=== PATIENT | male | born 1955 | race Caucasian/White ===

== ENCOUNTER 2016-09-29 13:29 | Emergency (ER) | payer OTHER ==
[~2016-09-29 13:29] MED LIST: ALBUTEROL HFA60 DOSE IN; ATROVENT HFA IN; LEVAQUIN500 MG PO; MAGNESIUM PO; METHADONE HCL10 MG PO; NYSTATIN100000 MG PO; PREDNISONE20 MG PO; QVAR IN; SPIRIVA HANDIHALER IN; SYNTHROID50 MCG PO; VITAMIN D PO; [UNRECOGNIZED DRUG - OTHER] PO
--- NOTE | 2016-09-29 14:44 | DIAGNOSTIC IMAGING REPORT ---
PROCEDURE: XR CHEST 2 VIEW INDICATION: CHEST PAIN, HX COPD TECHNIQUE: PA and lateral views. COMPARISON: Chest 02/09/2015 and 01/21/2015 and 07/30/2010 FINDINGS: Lungs are clear. COPD. Heart and mediastinum are normal. Thorax is normal. IMPRESSION: 1. COPD. No acute infiltrates.
--- NOTE | 2016-09-29 16:26 | ED ORDER SUMMARY ---
..... Patient: MARIA EUGENIA MILLER OrderSheet [facility] VisitID: [id number] [place] [address] 60y, M Registration Date/Time: 09/29/2016 ORDER SHEET Weight: 58.9 kg (stated) Allergies: Codeine, PCN GENERAL ORDERS: Chest 2V Urgent (14:03 09/29/2016 Kevin Cui) (Ack 14:06 LNations ER Tech1) (14:20 LNations ER Tech1) E Learning Specialist (Continuous) (CP) (14:03 09/29/2016 Kevin Cui) (Ack 14:05 LNations ER Tech1) (15:58 DDean R.N.) CBC w Diff Urgent (14:04 09/29/2016 Kevin Cui) (Ack 14:06 LNations ER Tech1) (15:58 DDean R.N.) CMP Urgent (14:04 09/29/2016 Kevin Cui) (Ack 14:06 LNations ER Tech1) (15:58 DDean R.N.) PT with INR Urgent (14:04 09/29/2016 Kevin Cui) (Ack 14:06 LNations ER Tech1) (15:58 DDean R.N.) Troponin-I Urgent (14:04 09/29/2016 Kevin Cui) (Ack 14:06 LNations ER Tech1) (15:58 DDean R.N.) D-Dimer Urgent (14:04 09/29/2016 Kevin Cui) (Ack 14:06 LNations ER Tech1) (15:58 DDean R.N.) Pulse oximeter (14:04 09/29/2016 Kevin Cui) (Ack 14:05 LNations ER Tech1) (15:58 DDean R.N.) MEDICATION ORDERS: Aspirin PO 325 mg (Do not crush or chew, NOW) (14:04 09/29/2016 Kevin Cui) (14:35 LWhalen R.N.) DuoNeb Neb Tx 1 unit dose (NOW) (14:13 09/29/2016 Kevin Cui) (14:35 LWkim R.N.) IV FLUIDS: IV Saline Lock (14:04 09/29/2016 Kevin Cui) (14:34 LWhalmayo R.N.) Solu-MEDROL IV 125 mg (NOW) (16:12 09/29/2016 Kevin Cui) (16:47 LWhalmayo R.N.) ORDER SHEET NOTES: [Electronically signed by Stew Boyle R.N. (19:12 10/03/2016)] [Electronically signed by Ger King Dr. (21:20 10/06/2016)] [Electronically locked/signed by Stew Boyle R.N. (19:12 10/03/2016)]
--- NOTE | 2016-09-29 16:26 | ED CLINICAL REPORT ---
Clinical Report - Physicians/Mid Levels [facility] [address] [place] [address] 09/29/2016 13:30 Patient: MARIA EUGENIA MILLER Arrived- By private vehicle. Historian- patient. HISTORY OF PRESENT ILLNESS Chief Complaint: CHEST PAIN. It is described as "feels like I got punched in the chest". No radiation. At its maximum, severity described as moderate. When seen in the E.D., severity described as moderate. Modifying factors- worsened by movement. Relieved by rest. This started 2 weeks ago and is still present (staying the same). It was abrupt in onset and has been constant but is not gone now. Onset during rest. No nausea, vomiting or diaphoresis. (hx of COPD). He has had difficulty breathing. No additional chest pain. Similar symptoms previously: None. Recent medical care: Not recently seen/assessed. REVIEW OF SYSTEMS No fever, chills or abdominal pain. All systems otherwise negative, except as recorded above. PAST HISTORY See nurses notes. Medications: Atrovent HFA Inhalation 2 puffs, 2x a day. Hydrocodone-Acetaminophen Oral, as needed. Magnesium Oral. Methadone HCl 10 mg, qid. Qvar Inhalation 2 puffs BID . Vitamin D Oral. Allergies: Codeine.(hives) PCN.(vomiting). SOCIAL HISTORY Smoker- current status unknown. History of drug use: marijuana. No alcohol use. No recent travel. Is a local resident. ADDITIONAL NOTES The nursing notes have been reviewed. PHYSICAL EXAM Vital Signs: 09/29/2016 13:33 BP: 132/105. HR: 95. RR: 16. O2 saturation: 97%. Temp: 98.2 F. Pain level now: 8/10. Hypertensive. Oxygen saturation normal. Appearance: Alert. Oriented X3. Patient in mild distress. Eyes: Pupils equal, round and reactive to light. Eyes normal inspection. ENT: Ears normal. Nose normal. Pharynx normal. Neck: Normal inspection. Neck supple. CVS: Normal heart rate and rhythm. Heart sounds normal. Pulses normal. Respiratory: Mild respiratory distress. Expiratory moderate bilateral wheezes diffusely. No rales or rhonchi. (reproducible left sided anterior chest pain. No crepitus. No overlying skin changes.). Abdomen: Soft and nontender. Bowel sounds normal. No mass. Back: Normal external inspection. Skin: Skin warm and dry. Normal skin color. No rash. Normal skin turgor. Extremities: Extremities exhibit normal ROM. No lower extremity edema. Neuro: Oriented X 3. No motor deficit. No sensory deficit. LABS, X-RAYS, AND EKG EKG: EKG time: (2464). No acute ischemia. Normal sinus rhythm. Rate: 86. Normal P waves. Normal LANDON. Normal QRS complex. Normal axis. Normal ST and T waves, QT and QTc. Left anterior fascicular block, incomplete RBBB, normal sinus. The study has been interpreted contemporaneously. The EKG appears to be a good tracing. Interpretation time: 0805. Chest X-ray: (PROCEDURE: XR CHEST 2 VIEW INDICATION: CHEST PAIN, HX COPD TECHNIQUE: PA and lateral views. COMPARISON: Chest 02/09/2015 and 01/21/2015 and 07/30/2010 FINDINGS: Lungs are clear. COPD. Heart and mediastinum are normal. Thorax is normal. IMPRESSION: 1. COPD. No acute infiltrates.). The X-rays were independently viewed by me and interpreted by the radiologist. The X-rays were discussed with the radiologist (via fax). Laboratory Tests: CBC w Diff: (ASAEL: 09/29/2016 13:45) ( MsgRcvd 09/29/2016 14:11) Final results Test Result Flag Units (Reference) WHITE BLOOD COUNT 8.3 K/uL (4.5-11.5) RED BLOOD COUNT 4.95 M/uL (4.50-5.90) HEMOGLOBIN 14.1 gm/dL (13.5-17.5) HEMATOCRIT 44.0 % (41.0-53.0) MEAN CELL VOLUME 89 fL (80-100) MEAN CORPUSCULAR HGB 29 pg (26-34) MEAN CORPUSCULAR HGB CONC 32 g/dL (31-37) RED CELL DISTRIBUTION WIDTH 15.5 H % (11.6-14.8) PLATELET COUNT 123 L K/uL (150-400) NEUTROPHIL % 58.8 % (50-75) LYMPH % 26.4 % (25-40) MONO % 10.5 % (3-14) EOSINOPHIL % 3.6 % (0-4) BASOPHIL % 0.7 % (0-2) PT with INR: (ASAEL: 09/29/2016 13:45) ( [place] [facility] [place] 14:16) Final results Test Result Flag Units (Reference) INR 1.0 (0.8-1.2) Low Intensity Therapy: INR 1.5-2.0 PT range 18.5-23.1Mod.Intensity Therapy: INR 2.0-3.0 PT range 23.1-31.5High Intensity Therapy: INR 2.5-3.5 PT range 27.4-35.5High Intensity Therapy 2: INR 3.0-4.0 PT range 31.5-39.3 D-DIMER QUANTITATIVE 0.35 ug/mLFEU (0.27-0.52) The primary value of this quantitative assay relates toits negative predictive value (i.e. exclusion) of pulmonaryembolism/deep vein thrombosis/DIC.Elevated levels of d-dimer may also occur with:, age, cancer, inflammation, liver disease,post-op, infection, hematoma, coronary disease, peripheralarteriopathy, bleeding disorders and thrombolytic treatment.Results should be correlated with other clinical andradiological data.Testing Methodology: Latex Immunoassay CMP: (ASAEL: 09/29/2016 13:45) ( [place] [facility] [place] 09/29/2016 14:45) Final results Test Result Flag Units (Reference) GLUCOSE 121 H mg/dL (70-110) BUN 21 H mg/dL (7-18) CREATININE 0.9 mg/dL (0.6-1.3) Estimated GFR >60 mL/min Estimated GFR- >60 mL/min Note: Persistent reduction over 3 months in eGFR<60 mL/min/1.73 m2 defines CKD. Patients with eGFR values>=60 mL/min/1.73 m2 may also have CKD if evidence ofpersistent proteinuria. Additional information may be foundat [email or web address].org. SODIUM 138 mmol/L (136-145) POTASSIUM 4.3 mmol/L (3.5-5.1) CHLORIDE 103 mmol/L (98-107) CARBON DIOXIDE 26 mmol/L (21-32) CALCIUM 8.8 mg/dL (8.5-10.1) TOTAL PROTEIN 7.7 g/dL (6.4-8.2) ALBUMIN 3.5 g/dL (3.3-5.0) BILIRUBIN, TOTAL 0.5 mg/dL (0.0-1.0) ALKALINE PHOSPHATASE 81 U/L (46-116) AST (SGOT) 118 H U/L (15-37) ALT (SGPT) 129 H U/L (12-78) TROPONIN I <0.05 ng/mL (0.00-1.5) TROPONIN REFERENCE RANGE:<0.1 NEGATIVE0.1-1.5 INDETERMINANT>1.5 POSITIVE . PROGRESS AND PROCEDURES Course of Care: the patient is a pleasant 60-year-old male with past medical history significant for COPD presenting for evaluation of left-sided chest pain. Patient describes the pain as being "punched in the chest. "patient is slightly anxious at this time because of a friend who had suddenly after visiting the hospital. The patient has a some what rhonchi on lung examination. The patient will be treated with breathing treatment as well as obtain x-rays of the chest and laboratory studies including troponin and d-dimer. At this time differential diagnosis includes pneumonia, pulmonary embolism, acute myocardial infarction, and thoracic aortic dissection. The patient is nontoxic and in no acute distress. Patient is agreeable to the treatment plan. Workup does not show any acute abnormalities. D-dimer and troponin are noted to be negative. Because the patient has been having these symptoms for the past 2 weeks and have been constant, do not feel patient requires a delta troponin at this time. Patient will be instructed to follow-up with a assurance specialist and his primary care Discussedwith patient work up, diagnosis, home care, follow up, and return precautions. All questions answered. Patient expressed understanding of these instructions and was agreeable to them. Do not feel patient needs to be admitted or require further emergency department workup/evaluation. Disposition: Discharged. Condition: good. CLINICAL IMPRESSION Chest pain characterized as "discomfort" .12 lead EKG performed. (acute left sided). 09/29/2016 13:33 BP: 132/105. HR: 95. RR: 16. O2 saturation: 97%. Temp: 98.2 F. Pain level now: 8. Hypertensive. Oxygen saturation normal. Acute exacerbation of COPD (emphysematous) Essential hypertension. INSTRUCTIONS Warnings: GENERAL WARNINGS: Return or contact your physician immediately if your condition worsens or changes unexpectedly, if not improving as expected, or if other problems arise. SPECIFICALLY, return if you develop chest, neck, jaw, shoulder, arm, or back pain, difficulty breathing, a fluttering sensation in your chest, lightheadedness, fainting, excessive fatigue, or sudden sweating. Your Current Medications: CONTINUE TAKING THE FOLLOWING MEDICATIONS: Atrovent HFA Inhalation : 2 puffs 2x a day. Hydrocodone-Acetaminophen Oral : prn. Magnesium Oral. Methadone HCl : 10 mg qid. Qvar Inhalation : 2 puffs BID. Vitamin D Oral. Prescription Medications: Zofran (orally disintegrating tablets) 4 mg: take 1 orally every 8 hours as needed for nausea and vomiting. Dispense ten (10). No refill. Substitution is permissible. Prednisone 50 mg: take 1 orally every day for 5 days. Dispense five (5). No refills. Azithromycin Z-Edgard: Take according to package instructions. No refills. Follow-up: Return to the emergency department as needed. Follow up with your doctor in three days. Reason for referral: recheck today's concerns. Summary of care provided to patient via paper. Screening today revealed the patient's blood pressure to be in the hypertensive range. Understanding of the discharge instructions verbalized by patient. Follow-up with: Follow up. Reason for referral: Cardiology in [facility]. Call [phone] for an appointment in 3 days. Summary of care provided to patient via paper. (Electronically signed by Ger King Dr. 10/06/2016 21:20)
--- NOTE | 2016-09-29 16:26 | ED NURSING NOTES ---
Clinical Report - Nurses [facility] [address] [place] [address] 09/29/2016 13:30 Patient: MARIA EUGENIA MILLER TRIAGE Triage time 13:33. Chief Complaint: CHEST PAIN. --13:40 Janice Amezquita R.N. 13:33 09/29/16. BP: 132/105. HR: 95. RR: 16. O2 saturation: 97% on room air. Temp: 98.2 F (oral). Pain level now: 8/10. --13:40 Janice Amezquita R.N. Acuity: LEVEL 3. Alert. No acute distress. JULIO CÉSAR COMA SCORE: Julio César Coma Scale: 15- eyes open spontaneously (4); best verbal response- oriented x 4 (5); best motor response- obeys commands (6). --13:41 Janice Amezquita R.N. Weight: 58.9 kg stated. Height/Length: 69 inches Per Patient. BMI: 19.2. --13:36 Janice Amezquita R.N. Medications Atrovent HFA Inhalation 2 puffs, 2x a day. Hydrocodone-Acetaminophen Oral, as needed. Magnesium Oral. Methadone HCl 10 mg, qid. Qvar Inhalation 2 puffs BID . Vitamin D Oral. --13:39 Janice Amezquita R.N. Medication/allergy information source: the patient and patient's significant other. --13:40 Janice Amezquita R.N. Allergies Codeine.(hives) PCN.(vomiting) --13:39 Janice Amezquita R.N. History Arrived by private vehicle. Historian: patient. Accompanied by friend. Primary physician (Stu). Onset. (about 2 weeks ago). Describes the quality as (constant). Relates location as in the left chest area. Notes pain level as 8/10 on arrival and 10/10 at maximum. Provoking / relieving factors: worsened by movement and walking; relieved by rest. ( recent pneumonia). The patient has had difficulty breathing. Reports experiencing sweating episodes (at night). SOCIAL HX: Smoker- current status unknown (no). History of drug use: marijuana. (edible). No alcohol use. FALL RISK ASSESSMENT: Fall risk assessment completed. No fall risk identified. FUNCTIONAL ASSESSMENT: Functional assessment: no impairments noted. LEARNING NEEDS ASSESSMENT: The learning needs assessment revealed no barriers. --13:40 Janice Amezquita R.N. ( pt masked in admitting). --13:42 Janice Amezquita R.N. PROBLEMS: Myocardial Infarction. Pneumonia. Coronary Artery Disease. RSD. Hep C. COPD - Chronic Obstructive Pulmonary Disease. Angiogram 12 years ago with "a clean out". --13:35 Janice Amezquita R.N. Bronchitis [RuleOut]. --13:35 Janice Amezquita R.N. Assessment GENERAL / NEURO / PSYCH: Alert. Oriented X 4. Appears in no acute distress. Patient appears calm and cooperative. RESPIRATORY: Respirations not labored. Cough. CVS: Normal sinus rhythm noted. SKIN: Skin is warm and dry. --13:41 Janice Amezquita R.N. Interventions ID and allergy band on patient. To treatment room. --13:41 Janice Amezquita R.N. PHYSICAL ASSESSMENT 13:41 09/29/16. Ambulatory to room. Patient gowned. GENERAL / NEURO / PSYCH: Alert. Oriented X 4. Appears in no acute distress. RESPIRATORY: Respirations not labored. CVS: Cardiac rhythm: sinus rhythm. SKIN: Skin is warm and dry. --13:41 Janice Amezquita R.N. NURSING PROGRESS NOTES 13:41 09/29/16. property assessment monitor, pulse oximeter and NIBP monitor placed on patient. Patient gowned. Head of bed elevated. Call light placed in reach. Side rails up x 1. Bed placed in lowest position. Brakes of bed on. --13:41 Janice Amezquita R.N. 13:42 09/29/2016 Site #1 started via IV in the left forearm with an 20g angiocath, with aseptic technique and good blood return; one attempt. Blood drawn: rainbow set. Labeled in the presence of the patient and sent to the lab. Saline lock flushed with 10 mL saline (by Stew MCKINNEY). --13:42 Janice Amezquita R.N. EKG time: (13:43 AM). EKG was performed by a tech and shown to the ED physician. --13:45 Santos Tucker 14:34 09/29/2016 Aspirin PO Tablets 325 mg given. Allergies verified and confirmed 5 rights. --14:35 Stew Boyle R.N. 14:35 09/29/2016 Duoneb (Ipratropium-Albuterol) Neb TX Nebulizer 1 unit dose given. Given by the respiratory therapist. Allergies verified and confirmed 5 rights. --14:35 Stew Boyle R.N. 16:36 09/29/2016 SOLU-MEDROL (MethylPREDNISolone Sodium Succ) IVP 125 mg given over 2 minute(s) via site #1. Allergies verified and confirmed 5 rights. IV patency established. IV site checked: no pain, redness, or swelling. IV flushed thoroughly pre- and post-medication administration. --16:47 Stew Boyle R.N. 16:51 09/29/16. BP: 94/68. HR: 65. RR: 18. O2 saturation: 95%. Temp: 98.2 F. Pain level now 4/10. 14:40 09/29/16. BP: 101/70. HR: 77. RR: 18. O2 saturation: 95%. 13:40 09/29/16. BP: 108/74. HR: 80. RR: 15. O2 saturation: 94%. 13:33 09/29/16. BP: 132/105. HR: 95. RR: 16. O2 saturation: 97% on room air. Temp: 98.2 F (oral). Pain level now: 810. --17:01 Stew Boyle R.N. 16:36 09/29/2016 Site #1 removed upon discharge. Catheter intact. Pressure dressing applied. --17:01 Stew Boyle R.N. DISPOSITION / DISCHARGE Departure time: 16:30 Sep 29 2016. Condition at departure: improved. No learning barriers present. Discharge instructions provided and reviewed with the patient. Reviewed warnings. Reviewed medication(s). Treatments reviewed. Reviewed referrals. Patient verbalized understanding. Written instructions provided in Armenian. The patient was discharged home and accompanied by spouse. He left the Emergency Department ambulatory and via private vehicle. Spouse driving. --16:56 Stew Boyle R.N. 16:51 09/29/16. BP: 94/68. HR: 65. RR: 18. O2 saturation: 95%. Temp: 98.2 F. Pain level now 4/10. --16:56 Stew Boyle R.N. Locked/Released at 10/03/2016 19:12 by Stew Boyle R.N.
--- NOTE | 2016-09-29 16:26 | ED ORDER SUMMARY ---
..... Patient: MARIA EUGENIA MILLER OrderSheet [facility] VisitID: [id number] [place] [address] 60y, M Registration Date/Time: 09/29/2016 ORDER SHEET Weight: 58.9 kg (stated) Allergies: Codeine, PCN GENERAL ORDERS: Chest 2V Urgent (14:03 09/29/2016 Kevin Cui) (Ack 14:06 LNations ER Tech1) (14:20 LNations ER Tech1) Pattern Lease Inspector (Continuous) (CP) (14:03 09/29/2016 Kevin Cui) (Ack 14:05 LNations ER Tech1) (15:58 DDean R.N.) CBC w Diff Urgent (14:04 09/29/2016 Kevin Cui) (Ack 14:06 LNations ER Tech1) (15:58 DDean R.N.) CMP Urgent (14:04 09/29/2016 Kevin Cui) (Ack 14:06 LNations ER Tech1) (15:58 DDean R.N.) PT with INR Urgent (14:04 09/29/2016 Kevin Cui) (Ack 14:06 LNations ER Tech1) (15:58 DDean R.N.) Troponin-I Urgent (14:04 09/29/2016 Kevin Cui) (Ack 14:06 LNations ER Tech1) (15:58 DDean R.N.) D-Dimer Urgent (14:04 09/29/2016 Kevin Cui) (Ack 14:06 LNations ER Tech1) (15:58 DDean R.N.) Pulse oximeter (14:04 09/29/2016 Kevin Cui) (Ack 14:05 LNations ER Tech1) (15:58 DDean R.N.) MEDICATION ORDERS: Aspirin PO 325 mg (Do not crush or chew, NOW) (14:04 09/29/2016 Kevin Cui) (14:35 LWhalen R.N.) DuoNeb Neb Tx 1 unit dose (NOW) (14:13 09/29/2016 Kevin Cui) (14:35 LWkim R.N.) IV FLUIDS: IV Saline Lock (14:04 09/29/2016 Kevin Cui) (14:34 LWhalmayo R.N.) Solu-MEDROL IV 125 mg (NOW) (16:12 09/29/2016 Kevin Cui) (16:47 LWhalmayo R.N.) ORDER SHEET NOTES: [Electronically signed by Stew Boyle R.N. (19:12 10/03/2016)] [Electronically signed by Ger King Dr. (21:20 10/06/2016)] [Electronically locked/signed by Stew Boyle R.N. (19:12 10/03/2016)]
--- NOTE | 2016-09-29 16:26 | ED CLINICAL REPORT ---
Clinical Report - Physicians/Mid Levels [facility] [address] [place] [address] 09/29/2016 13:30 Patient: MARIA EUGENIA MILLER Arrived- By private vehicle. Historian- patient. HISTORY OF PRESENT ILLNESS Chief Complaint: CHEST PAIN. It is described as "feels like I got punched in the chest". No radiation. At its maximum, severity described as moderate. When seen in the E.D., severity described as moderate. Modifying factors- worsened by movement. Relieved by rest. This started 2 weeks ago and is still present (staying the same). It was abrupt in onset and has been constant but is not gone now. Onset during rest. No nausea, vomiting or diaphoresis. (hx of COPD). He has had difficulty breathing. No additional chest pain. Similar symptoms previously: None. Recent medical care: Not recently seen/assessed. REVIEW OF SYSTEMS No fever, chills or abdominal pain. All systems otherwise negative, except as recorded above. PAST HISTORY See nurses notes. Medications: Atrovent HFA Inhalation 2 puffs, 2x a day. Hydrocodone-Acetaminophen Oral, as needed. Magnesium Oral. Methadone HCl 10 mg, qid. Qvar Inhalation 2 puffs BID . Vitamin D Oral. Allergies: Codeine.(hives) PCN.(vomiting). SOCIAL HISTORY Smoker- current status unknown. History of drug use: marijuana. No alcohol use. No recent travel. Is a local resident. ADDITIONAL NOTES The nursing notes have been reviewed. PHYSICAL EXAM Vital Signs: 09/29/2016 13:33 BP: 132/105. HR: 95. RR: 16. O2 saturation: 97%. Temp: 98.2 F. Pain level now: 8/10. Hypertensive. Oxygen saturation normal. Appearance: Alert. Oriented X3. Patient in mild distress. Eyes: Pupils equal, round and reactive to light. Eyes normal inspection. ENT: Ears normal. Nose normal. Pharynx normal. Neck: Normal inspection. Neck supple. CVS: Normal heart rate and rhythm. Heart sounds normal. Pulses normal. Respiratory: Mild respiratory distress. Expiratory moderate bilateral wheezes diffusely. No rales or rhonchi. (reproducible left sided anterior chest pain. No crepitus. No overlying skin changes.). Abdomen: Soft and nontender. Bowel sounds normal. No mass. Back: Normal external inspection. Skin: Skin warm and dry. Normal skin color. No rash. Normal skin turgor. Extremities: Extremities exhibit normal ROM. No lower extremity edema. Neuro: Oriented X 3. No motor deficit. No sensory deficit. LABS, X-RAYS, AND EKG EKG: EKG time: (4984). No acute ischemia. Normal sinus rhythm. Rate: 86. Normal P waves. Normal LANDON. Normal QRS complex. Normal axis. Normal ST and T waves, QT and QTc. Left anterior fascicular block, incomplete RBBB, normal sinus. The study has been interpreted contemporaneously. The EKG appears to be a good tracing. Interpretation time: 1575. Chest X-ray: (PROCEDURE: XR CHEST 2 VIEW INDICATION: CHEST PAIN, HX COPD TECHNIQUE: PA and lateral views. COMPARISON: Chest 02/09/2015 and 01/21/2015 and 07/30/2010 FINDINGS: Lungs are clear. COPD. Heart and mediastinum are normal. Thorax is normal. IMPRESSION: 1. COPD. No acute infiltrates.). The X-rays were independently viewed by me and interpreted by the radiologist. The X-rays were discussed with the radiologist (via fax). Laboratory Tests: CBC w Diff: (ASAEL: 09/29/2016 13:45) ( MsgRcvd 09/29/2016 14:11) Final results Test Result Flag Units (Reference) WHITE BLOOD COUNT 8.3 K/uL (4.5-11.5) RED BLOOD COUNT 4.95 M/uL (4.50-5.90) HEMOGLOBIN 14.1 gm/dL (13.5-17.5) HEMATOCRIT 44.0 % (41.0-53.0) MEAN CELL VOLUME 89 fL (80-100) MEAN CORPUSCULAR HGB 29 pg (26-34) MEAN CORPUSCULAR HGB CONC 32 g/dL (31-37) RED CELL DISTRIBUTION WIDTH 15.5 H % (11.6-14.8) PLATELET COUNT 123 L K/uL (150-400) NEUTROPHIL % 58.8 % (50-75) LYMPH % 26.4 % (25-40) MONO % 10.5 % (3-14) EOSINOPHIL % 3.6 % (0-4) BASOPHIL % 0.7 % (0-2) PT with INR: (ASAEL: 09/29/2016 13:45) ( [facility] 09/29/2016 14:16) Final results Test Result Flag Units (Reference) INR 1.0 (0.8-1.2) Low Intensity Therapy: INR 1.5-2.0 PT range 18.5-23.1Mod.Intensity Therapy: INR 2.0-3.0 PT range 23.1-31.5High Intensity Therapy: INR 2.5-3.5 PT range 27.4-35.5High Intensity Therapy 2: INR 3.0-4.0 PT range 31.5-39.3 D-DIMER QUANTITATIVE 0.35 ug/mLFEU (0.27-0.52) The primary value of this quantitative assay relates toits negative predictive value (i.e. exclusion) of pulmonaryembolism/deep vein thrombosis/DIC.Elevated levels of d-dimer may also occur with:, age, cancer, inflammation, liver disease,post-op, infection, hematoma, coronary disease, peripheralarteriopathy, bleeding disorders and thrombolytic treatment.Results should be correlated with other clinical andradiological data.Testing Methodology: Latex Immunoassay CMP: (ASAEL: 09/29/2016 13:45) ( [facility] [place] 09/29/2016 14:45) Final results Test Result Flag Units (Reference) GLUCOSE 121 H mg/dL (70-110) BUN 21 H mg/dL (7-18) CREATININE 0.9 mg/dL (0.6-1.3) Estimated GFR >60 mL/min Estimated GFR- >60 mL/min Note: Persistent reduction over 3 months in eGFR<60 mL/min/1.73 m2 defines CKD. Patients with eGFR values>=60 mL/min/1.73 m2 may also have CKD if evidence ofpersistent proteinuria. Additional information may be foundat [email or web address].org. SODIUM 138 mmol/L (136-145) POTASSIUM 4.3 mmol/L (3.5-5.1) CHLORIDE 103 mmol/L (98-107) CARBON DIOXIDE 26 mmol/L (21-32) CALCIUM 8.8 mg/dL (8.5-10.1) TOTAL PROTEIN 7.7 g/dL (6.4-8.2) ALBUMIN 3.5 g/dL (3.3-5.0) BILIRUBIN, TOTAL 0.5 mg/dL (0.0-1.0) ALKALINE PHOSPHATASE 81 U/L (46-116) AST (SGOT) 118 H U/L (15-37) ALT (SGPT) 129 H U/L (12-78) TROPONIN I <0.05 ng/mL (0.00-1.5) TROPONIN REFERENCE RANGE:<0.1 NEGATIVE0.1-1.5 INDETERMINANT>1.5 POSITIVE . PROGRESS AND PROCEDURES Course of Care: the patient is a pleasant 60-year-old male with past medical history significant for COPD presenting for evaluation of left-sided chest pain. Patient describes the pain as being "punched in the chest. "patient is slightly anxious at this time because of a friend who had suddenly after visiting the hospital. The patient has a some what rhonchi on lung examination. The patient will be treated with breathing treatment as well as obtain x-rays of the chest and laboratory studies including troponin and d-dimer. At this time differential diagnosis includes pneumonia, pulmonary embolism, acute myocardial infarction, and thoracic aortic dissection. The patient is nontoxic and in no acute distress. Patient is agreeable to the treatment plan. Workup does not show any acute abnormalities. D-dimer and troponin are noted to be negative. Because the patient has been having these symptoms for the past 2 weeks and have been constant, do not feel patient requires a delta troponin at this time. 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 All questions answered. Patient expressed understanding of these instructions and was agreeable to them. Do not feel patient needs to be admitted or require further emergency department workup/evaluation. Disposition: Discharged. Condition: good. CLINICAL IMPRESSION Chest pain characterized as "discomfort" .12 lead EKG performed. (acute left sided). 09/29/2016 13:33 BP: 132/105. HR: 95. RR: 16. O2 saturation: 97%. Temp: 98.2 F. Pain level now: 8. Hypertensive. Oxygen saturation normal. Acute exacerbation of COPD (emphysematous) Essential hypertension. INSTRUCTIONS Warnings: GENERAL WARNINGS: Return or contact your physician immediately if your condition worsens or changes unexpectedly, if not improving as expected, or if other problems arise. SPECIFICALLY, return if you develop chest, neck, jaw, shoulder, arm, or back pain, difficulty breathing, a fluttering sensation in your chest, lightheadedness, fainting, excessive fatigue, or sudden sweating. Your Current Medications: CONTINUE TAKING THE FOLLOWING MEDICATIONS: Atrovent HFA Inhalation : 2 puffs 2x a day. Hydrocodone-Acetaminophen Oral : prn. Magnesium Oral. Methadone HCl : 10 mg qid. Qvar Inhalation : 2 puffs BID. Vitamin D Oral. Prescription Medications: Zofran (orally disintegrating tablets) 4 mg: take 1 orally every 8 hours as needed for nausea and vomiting. Dispense ten (10). No refill. Substitution is permissible. Prednisone 50 mg: take 1 orally every day for 5 days. Dispense five (5). No refills. Azithromycin Z-Edgard: Take according to package instructions. No refills. Follow-up: Return to the emergency department as needed. Follow up with your doctor in three days. Reason for referral: recheck today's concerns. Summary of care provided to patient via paper. Screening today revealed the patient's blood pressure to be in the hypertensive range. Understanding of the discharge instructions verbalized by patient. Follow-up with: Follow up. Reason for referral: Cardiology in [facility]. Call [phone] for an appointment in 3 days. Summary of care provided to patient via paper. (Electronically signed by Ger King Dr. 10/06/2016 21:20)
--- NOTE | 2016-10-06 21:21 | ED MAR SUMMARY ---
..... Medication Administration Record [facility] [address] [place] [address] Patient: MARIA EUGENIA MILLER Visit ID: [id number] 60y, M Weight: 58.9 kg Height/Length: 69 in BMI: 19.2 ALLERGIES: Codeine, PCN Given 14:34 09/29/2016 Stew Boyle RCatia Medication Administered: ASPIRIN [PO], Dose: 325 mg Tablets PO. Medication Ordered: Aspirin PO 325 mg (Do not crush or chew, NOW). Given 14:35 09/29/2016 Stew Boyle R.N. Medication Administered: DUONEB [NEB TX] (IPRATROPIUM-ALBUTEROL), Dose: 1 unit dose Nebulizer Neb TX. Medication Ordered: DuoNeb Neb Tx 1 unit dose (NOW). Given 16:36 09/29/2016 Stew Boyle RSimeonNSimeon Medication Administered: SOLU-MEDROL [IVP] (METHYLPREDNISOLONE SODIUM SUCC), Dose: 125 mg IVP over 2 minute(s), Site: #1. Medication Ordered: Solu-MEDROL IV 125 mg (NOW).
--- NOTE | 2016-10-06 21:21 | ED DISCHARGE INSTRUCTIONS ---
Patient: MARIA EUGENIA MILLER General Instructions [facility] VisitID: [id number] [place] [address] 60y, M Registration Date/Time: 09/29/2016 Chest pain characterized as "discomfort" .12 lead EKG performed. (acute left sided). 09/29/2016 13:33 BP: 132/105. HR: 95. RR: 16. O2 saturation: 97%. Temp: 98.2 F. Pain level now: 810. Hypertensive. Oxygen saturation normal. Acute exacerbation of COPD (emphysematous) Essential hypertension. INSTRUCTIONS Warnings: GENERAL WARNINGS: Return or contact your physician immediately if your condition worsens or changes unexpectedly, if not improving as expected, or if other problems arise. SPECIFICALLY, return if you develop chest, neck, jaw, shoulder, arm, or back pain, difficulty breathing, a fluttering sensation in your chest, lightheadedness, fainting, excessive fatigue, or sudden sweating. Your Current Medications: CONTINUE TAKING THE FOLLOWING MEDICATIONS: Atrovent HFA Inhalation : 2 puffs 2x a day. Hydrocodone-Acetaminophen Oral : prn. Magnesium Oral. Methadone HCl : 10 mg qid. Qvar Inhalation : 2 puffs BID. Vitamin D Oral. Prescription Medications: Zofran (orally disintegrating tablets) 4 mg: take 1 orally every 8 hours as needed for nausea and vomiting. Dispense ten (10). No refill. Substitution is permissible. Prednisone 50 mg: take 1 orally every day for 5 days. Dispense five (5). No refills. Azithromycin Z-Edgard: Take according to package instructions. No refills. Follow-up: Return to the emergency department as needed. Follow up with your doctor in three days. Reason for referral: recheck today's concerns. Summary of care provided to patient via paper. Screening today revealed the patient's blood pressure to be in the hypertensive range. Understanding of the discharge instructions verbalized by patient. Follow-up with: Follow up. Reason for referral: Cardiology in [facility]. Call [phone] for an appointment in 3 days. Summary of care provided to patient via paper. ADDITIONAL INFORMATION Chest Pain, Uncertain Cause Chest pain can happen for a number of reasons. Sometimes the cause can not be determined. If yourcondition does not seem serious, and your pain does not appear to be coming from your heart, your doctor may recommend watching it closely. Sometimes the signs of a serious problem take more time to appear. Therefore, watch for the warning signs listed below. Home care After your visit, follow these recommendations: Rest today and avoid strenuous activity. Take any prescribed medicine as directed. Follow-up care Follow up with your doctor or this facility as instructed or if you do not start to feel better within 24 hours. Call 911 Get immediate medical attention if any of the following occur: A change in the type of pain: if it feels different, becomes more severe, lasts longer, or begins to spread into your shoulder, arm, neck, jaw or back Shortness of breath or increased pain with breathing Weakness, dizziness, or fainting Rapid heart beat Get prompt medical attention Call your doctor right away if any of the following occur: Cough with dark colored sputum (phlegm) or blood Fever of 100.4F(38C) or higher, or as directed by your health care provider Swelling, pain or redness in one leg COPD Flare Both emphysema and chronic bronchitis are forms of chronic obstructive pulmonary disease (COPD). It is most often caused by many years of smoking tobacco. Many things can make your lung disease suddenly get worse. These causes include the common cold, pneumonia, acute bronchitis, missing doses of your regular breathing medicines, or being around smoke, dust, or other air pollutants. A COPD flare may last 7 to 14 days. Your doctor may prescribe medicineto relax your airways and prevent wheezing. Your doctor may also prescribe antibiotics if he or she thinks you havea bacterial infection. Prednisone can helpease inflammation in a severe attack. Home care Here are things you can do at home: Drink lots of water or other fluids (at least 10 glasses a day) during an attack. This will loosen lung secretions and make it easier to breathe. If you have heart or kidney disease, check with your doctor before you drink extra amounts of fluids. Take prescribed medicine exactly at the times advised. If you have a hand-held inhaler or aerosol breathing medicine, don't use it more than once every 4 hours, unless your doctor tells you to. If you were givenan antibiotic or prednisone, take all of the medicine even if you are feeling better after a few days. Don't smoke. Avoid being aroundthe smoke of others. If you were given an inhaler, use it exactly as directed. If you need to use it more often than prescribed, your condition may be getting worse. Call your doctor. Follow-up care Follow up with your health care provider.If you are 65 or older or have chronic asthma or COPD, you should get a single dose of the pneumococcal vaccine and aflu shot each year. You may need a second dose of the pneumococcal vaccine if you had the first dose at a younger age. Your health care provider will let you know if you need a second dose. For all other people, the usual dose for the pneumococcal vaccine is 1 or 2 shots. Yourprovider can discuss this with you. When to seek medical care Get prompt medical attention ifany of these occur: Increased wheezing or shortness of breath Need to use your inhalers more often than usual without relief Fever of 100.4F(38C) or higher, or as directed by your health care provider Coughing up lots of dark-colored or bloody sputum (mucus) Chest pain with each breath You do not start to improve within 24 hours High Blood Pressure --Established High Blood Pressure (Hypertension) is a chronic disease. The cause is unknown in most cases. It can usually be controlled with lifestyle changes and/or medicines. Symptoms of high blood pressure may include headache, dizziness, visual changes, chest pain and shortness of breath. Sometimes it causes no symptoms at all. However, even if there are no symptoms, untreated high blood pressure increases the risk of heart attack, also known as acute myocardial infarction, or AMI, and stroke. It is a serious health risk and should not be ignored. A normal blood pressure is 120/80 or less. The first (top) number is the "systolic" pressure. The second (bottom) number is the "diastolic" pressure. Hypertension exists when either the top number is 140 or higher, OR the bottom number is 90 or higher on repeated measurements. Home Care: All patients with high blood pressure should do the following to lower their pressure. If you are on medicines, then these methods may reduce or eliminate your need for medicines in the future. Begin a weight loss program if you are overweight. Reduce your salt intake. Avoid high salt foods (olives, pickles, smoked meats, salted potato chips, etc.). Do not add salt to your food at the table. Use only small amounts of salt when cooking. Begin an exercise program. Discuss with your doctor what type of exercise program would be best for you. It doesn't have to be difficult. Even brisk walking for 20 minutes three times a week is a good form of exercise. Avoid medicines which contain heart stimulants. This includes many cold and sinus decongestant pills and sprays as well as diet pills. Check the warnings about hypertension on the label. Stimulants such as amphetamine or cocaine could be lethal for someone with hypertension. Never take these. Limit your caffeine intake or switch to caffeine-free products. Stop smoking. If you are a long-time smoker, this can be hard. Enroll in a stop-smoking program to improve your chance of success. Learning how to handle stress better is an important part of any program to lower blood pressure. Learn about relaxation methods such as meditation, yoga or biofeedback. If medicines were prescribed, take them exactly as directed. Missing doses may cause your blood pressure get out of control. Consider buying an automatic blood pressure machine (available at most pharmacies). Use this to monitor your blood pressure at home and report the results to your doctor. Follow Up: Regular visits to your own physician for blood pressure checks and medicine adjustment is an important part of your care. Make a follow-up appointment as directed by our staff. Get Prompt Medical Attention if any of the following occur: Chest pain or shortness of breath Severe headache Throbbing or rushing sound in the ears Nosebleed Sudden severe abdominal pain Extreme drowsiness, confusion or fainting Dizziness or vertigo (dizziness with spinning sensation) Weakness of an arm or leg or one side of the face Difficulty with speech or vision Ondansetron Oral disintegrating tablet What is this medicine? ONDANSETRON (on DAVID se brando) is used to treat nausea and vomiting caused by chemotherapy. It is also used to prevent or treat nausea and vomiting after surgery. How should I use this medicine? These tablets are made to dissolve in the mouth. Do not try to push the tablet through the foil backing. With dry hands, peel away the foil backing and gently remove the tablet. Place the tablet in the mouth and allow it to dissolve, then swallow. While you may take these tablets with water, it is not necessary to do so. Talk to your file machine operator regarding the use of this medicine in children. Special care may be needed. What side effects may I notice from receiving this medicine? Side effects that you should report to your doctor or health healthcare market consultant as soon as possible: allergic reactions like skin rash, itching or hives, swelling of the face, lips, or tongue breathing problems dizziness fast or irregular heartbeat feeling faint or lightheaded, falls fever and chills swelling of the hands and feet tightness in the chest Side effects that usually do not require medical attention (report to your doctor or health healthcare market consultant if they continue or are bothersome): constipation or diarrhea headache What may interact with this medicine? Do not take this medicine with any of the following medications: -apomorphine -cisapride -dofetilide -dronedarone -pimozide -thioridazine -ziprasidone This medicine may also interact with the following medications: -carbamazepine -phenytoin -rifampicin -tramadol -other medicines that prolong the QT interval (cause an abnormal heart rhythm) What if I miss a dose? If you miss a dose, take it as soon as you can. If it is almost time for your next dose, take only that dose. Do not take double or extra doses. Where should I keep my medicine? Keep out of the reach of children. Store between 2 and 30 degrees C (36 and 86 degrees F). Throw away any unused medicine after the expiration date. What should I tell my health care provider before I take this medicine? They need to know if you have any of these conditions: heart disease history of irregular heartbeat liver disease low levels of magnesium or potassium in the blood an unusual or allergic reaction to ondansetron, granisetron, other medicines, foods, dyes, or preservatives or trying to get breast-feeding What should I watch for while using this medicine? Check with your doctor or health healthcare market consultant as soon as you can if you have any sign of an allergic reaction. Prednisone Oral tablet What is this medicine? PREDNISONE (PRED ni sone) is a corticosteroid. It is commonly used to treat inflammation of the skin, joints, lungs, and other organs. Common conditions treated include asthma, allergies, and arthritis. It is also used for other conditions, such as blood disorders and diseases of the adrenal glands. How should I use this medicine? Take this medicine by mouth with a glass of water. Follow the directions on the prescription label. Take this medicine with food. If you are taking this medicine once a day, take it in the morning. Do not take more medicine than you are told to take. Do not suddenly stop taking your medicine because you may develop a severe reaction. Your doctor will tell you how much medicine to take. If your doctor wants you to stop the medicine, the dose may be slowly lowered over time to avoid any side effects. Talk to your file machine operator regarding the use of this medicine in children. Special care may be needed. What side effects may I notice from receiving this medicine? Side effects that you should report to your doctor or health healthcare market consultant as soon as possible: allergic reactions like skin rash, itching or hives, swelling of the face, lips, or tongue changes in emotions or moods changes in vision depressed mood eye pain fever or chills, cough, sore throat, pain or difficulty passing urine increased thirst swelling of ankles, feet Side effects that usually do not require medical attention (report to your doctor or health healthcare market consultant if they continue or are bothersome): confusion, excitement, restlessness headache nausea, vomiting skin problems, acne, thin and shiny skin trouble sleeping weight gain What may interact with this medicine? Do not take this medicine with any of the following medications: metyrapone mifepristone This medicine may also interact with the following medications: aminoglutethimide amphotericin B aspirin and aspirin-like medicines barbiturates certain medicines for diabetes, like glipizide or glyburide cholestyramine cholinesterase inhibitors cyclosporine digoxin diuretics ephedrine female hormones, like estrogens and control pills isoniazid ketoconazole NSAIDS, medicines for pain and inflammation, like ibuprofen or naproxen phenytoin rifampin toxoids vaccines warfarin What if I miss a dose? If you miss a dose, take it as soon as you can. If it is almost time for your next dose, talk to your doctor or health healthcare market consultant. You may need to miss a dose or take an extra dose. Do not take double or extra doses without advice. Where should I keep my medicine? Keep out of the reach of children. Store at room temperature between 15 and 30 degrees C (59 and 86 degrees F). Protect from light. Keep container tightly closed. Throw away any unused medicine after the expiration date. What should I tell my health care provider before I take this medicine? They need to know if you have any of these conditions: Bharat's syndrome diabetes glaucoma heart disease high blood pressure infection (especially a virus infection such as chickenpox, cold sores, or herpes) kidney disease liver disease mental illness myasthenia gravis osteoporosis seizures stomach or intestine problems thyroid disease an unusual or allergic reaction to lactose, prednisone, other medicines, foods, dyes, or preservatives or trying to get breast-feeding What should I watch for while using this medicine? Visit your doctor or health healthcare market consultant for regular checks on your progress. If you are taking this medicine over a prolonged period, carry an identification card with your name and address, the type and dose of your medicine, and your doctor's name and address. This medicine may increase your risk of getting an infection. Tell your doctor or health healthcare market consultant if you are around anyone with measles or chickenpox, or if you develop sores or blisters that do not heal properly. If you are going to have surgery, tell your doctor or health healthcare market consultant that you have taken this medicine within the last twelve months. Ask your doctor or health healthcare market consultant about your diet. You may need to lower the amount of salt you eat. This medicine may affect blood sugar levels. If you have diabetes, check with your doctor or health healthcare market consultant before you change your diet or the dose of your diabetic medicine. Azithromycin Oral tablet What is this medicine? AZITHROMYCIN (az ith samarahomero HUFFMANHomero sin) is a macrolide antibiotic. It is used to treat or prevent certain kinds of bacterial infections. It will not work for colds, flu, or other viral infections. How should I use this medicine? Take this medicine by mouth with a full glass of water. Follow the directions on the prescription label. The tablets can be taken with food or on an empty stomach. If the medicine upsets your stomach, take it with food. Take your medicine at regular intervals. Do not take your medicine more often than directed. Take all of your medicine as directed even if you think your are better. Do not skip doses or stop your medicine early. Talk to your file machine operator regarding the use of this medicine in children. Special care may be needed. What side effects may I notice from receiving this medicine? Side effects that you should report to your doctor or health healthcare market consultant as soon as possible: allergic reactions like skin rash, itching or hives, swelling of the face, lips, or tongue confusion, nightmares or hallucinations dark urine difficulty breathing hearing loss irregular heartbeat or chest pain pain or difficulty passing urine redness, blistering, peeling or loosening of the skin, including inside the mouth white patches or sores in the mouth yellowing of the eyes or skin Side effects that usually do not require medical attention (report to your doctor or health healthcare market consultant if they continue or are bothersome): diarrhea dizziness, drowsiness headache stomach upset or vomiting tooth discoloration vaginal irritation What may interact with this medicine? Do not take this medicine with any of the following medications: lincomycin This medicine may also interact with the following medications: amiodarone antacids cyclosporine digoxin magnesium nelfinavir phenytoin warfarin What if I miss a dose? If you miss a dose, take it as soon as you can. If it is almost time for your next dose, take only that dose. Do not take double or extra doses. Where should I keep my medicine? Keep out of the reach of children. Store at room temperature between 15 and 30 degrees C (59 and 86 degrees F). Throw away any unused medicine after the expiration date. What should I tell my health care provider before I take this medicine? They need to know if you have any of these conditions: kidney disease liver disease irregular heartbeat or heart disease an unusual or allergic reaction to azithromycin, erythromycin, other macrolide antibiotics, foods, dyes, or preservatives or trying to get breast-feeding What should I watch for while using this medicine? Tell your doctor or health healthcare market consultant if your symptoms do not improve. Do not treat diarrhea with over the counter products. Contact your doctor if you have diarrhea that lasts more than 2 days or if it is severe and watery. This medicine can make you more sensitive to the sun. Keep out of the sun. If you cannot avoid being in the sun, wear protective clothing and use sunscreen. Do not use sun lamps or tanning beds/booths. You have been given the following additional information: Chest Pain, Uncertain Cause COPD Flare Hypertension, Established Ondansetron Oral disintegrating tablet Prednisone Oral tablet Azithromycin Oral tablet (Electronically signed by Ger King Dr. 10/06/2016 21:20)
--- NOTE | 2016-10-06 21:21 | ED MAR SUMMARY ---
..... Medication Administration Record [facility] [address] [place] [address] Patient: MARIA EUGENIA MILLER Visit ID: [id number] 60y, M Weight: 58.9 kg Height/Length: 69 in BMI: 19.2 ALLERGIES: Codeine, PCN Given 14:34 09/29/2016 Stew Boyle RCatia Medication Administered: ASPIRIN [PO], Dose: 325 mg Tablets PO. Medication Ordered: Aspirin PO 325 mg (Do not crush or chew, NOW). Given 14:35 09/29/2016 Stew Boyle R.N. Medication Administered: DUONEB [NEB TX] (IPRATROPIUM-ALBUTEROL), Dose: 1 unit dose Nebulizer Neb TX. Medication Ordered: DuoNeb Neb Tx 1 unit dose (NOW). Given 16:36 09/29/2016 Stew Boyle RSimeonNSimeon Medication Administered: SOLU-MEDROL [IVP] (METHYLPREDNISOLONE SODIUM SUCC), Dose: 125 mg IVP over 2 minute(s), Site: #1. Medication Ordered: Solu-MEDROL IV 125 mg (NOW).
--- NOTE | 2016-10-06 21:21 | ED MED RECONCILIATION SUMMARY ---
Patient: MARIA EUGENIA MILLER Medication Reconciliation Report [facility] VisitID: [id number] [address] [place] [address] 60y, M Registration Date/Time: 09/29/2016 Weight: 58.9 kg Height/Length: 69 in. BMI: 19.2 ALLERGIES: Codeine, PCN The patient's Home Medications are listed below: CONTINUE TAKING THE FOLLOWING MEDICATIONS: Atrovent HFA Inhalation 2 puffs, 2x a day Hydrocodone-Acetaminophen Oral Magnesium Oral Methadone HCl 10 mg, qid Qvar Inhalation 2 puffs BID Vitamin D Oral The source(s) of the original Home Medication information: patient patient's significant other The following Medications were given to the patient in the Emergency Department: Aspirin [PO] PO 325 mg, administered: 09/29/2016 2:34:00 PM Duoneb [Neb Tx] Neb TX 1 unit dose, administered: 09/29/2016 2:35:00 PM SOLU-MEDROL [IVP] IVP 125 mg, administered: 09/29/2016 4:36:00 PM The following Medications were prescribed to the patient: Zofran (orally disintegrating tablets) 4 mg: take 1 orally every 8 hours as needed for nausea and vomiting. Dispense ten (10). No refill. Substitution is permissible. -- Ger King Dr. Prednisone 50 mg: take 1 orally every day for 5 days. Dispense five (5). No refills. -- Ger King Dr. Azithromycin -Edgard: Take according to package instructions. No refills. -- Ger King Dr.
--- NOTE | 2016-10-06 21:21 | ED MED RECONCILIATION SUMMARY ---
Patient: MARIA EUGENIA MILLER Medication Reconciliation Report [facility] VisitID: [id number] [address] [place] [address] 60y, M Registration Date/Time: 09/29/2016 Weight: 58.9 kg Height/Length: 69 in. BMI: 19.2 ALLERGIES: Codeine, PCN The patient's Home Medications are listed below: CONTINUE TAKING THE FOLLOWING MEDICATIONS: Atrovent HFA Inhalation 2 puffs, 2x a day Hydrocodone-Acetaminophen Oral Magnesium Oral Methadone HCl 10 mg, qid Qvar Inhalation 2 puffs BID Vitamin D Oral The source(s) of the original Home Medication information: patient patient's significant other The following Medications were given to the patient in the Emergency Department: Aspirin [PO] PO 325 mg, administered: 09/29/2016 2:34:00 PM Duoneb [Neb Tx] Neb TX 1 unit dose, administered: 09/29/2016 2:35:00 PM SOLU-MEDROL [IVP] IVP 125 mg, administered: 09/29/2016 4:36:00 PM The following Medications were prescribed to the patient: Zofran (orally disintegrating tablets) 4 mg: take 1 orally every 8 hours as needed for nausea and vomiting. Dispense ten (10). No refill. Substitution is permissible. -- Ger King Dr. Prednisone 50 mg: take 1 orally every day for 5 days. Dispense five (5). No refills. -- Ger King Dr. Azithromycin -Edgard: Take according to package instructions. No refills. -- Ger King Dr.
== END 2016-09-29 16:30 | disposition home or self-care (01) ==
LOC: ED SRH 13:29
DX: R07.89 Other chest pain (principal); J44.1 Chronic obstructive pulmonary disease with (acute) exacerbation; I10 Essential (primary) hypertension; Z79.51 Long term (current) use of inhaled steroids; Z79.891 Long term (current) use of opiate analgesic; Z79.899 Other long term (current) drug therapy; Z88.5 Allergy status to narcotic agent; Z88.0 Allergy status to penicillin
CPT/HCPCS: 90100; 90616; 91556; 94060; 95059